=== PATIENT | female | born 1955 | race Caucasian/White ===

== ENCOUNTER → 2021-08-28 | Outpatient (CLI) | payer MEDICARE ==
[~2021-08-28] MED LIST: AMIT25TA PO; ASPI-630 PO; ESOM40CA PO; IOHEXOL 180 MG/ML 10 ML VIAL. ONE; NAPR220C62 PO; TIZA4CAP PO; methylPREDNISolone ACETATE 80 MG/ML VIAL. ONE
--- NOTE | 2021-08-28 12:28 | PDOC4 ---
Procedure Note: ICD 10 Code: ICD 10 Code: M54.16 M51.36 M4 8.06 Procedure Note: Patient was consented for lumbar epidural steroid injection with fluoroscopic guidance. Risks were discussed including but not limited to: Bleeding, infection, possibility of epidural hematoma and subsequent neurological compromise, dural puncture, headaches, spinal cord and/or nerve damage, side effects of steroid medication, and poor results regarding pain control. Patient understands and wished to proceed. Procedure is lumbar epidural steroid injection under local anesthetic using suri rile prep and drape at the L4-5 level using C-arm fluoroscopic guidance in both AP and lateral views medications injected is 120 mg Depo-Medrol +10mL preservative-free normal saline and 2 mL contrast- condition at discharge is stable patient tolerated procedure well had no complications. ANN ALVAREZ MD Aug 28, 2021 12:28
--- NOTE | 2021-08-28 12:28 | PDOC1 ---
INITIAL PAIN CONSULT DATE OF SERVICE: DOS: DATE: 08/28/21 TIME: 12:21 CHIEF COMPLAINT: Chief Complaint: Low back and right lower extremity pain HISTORY OF PRESENT ILLNESS: 66-year-old female presents with history of pain low back right lower extremity for many years and worse over the past year or so without any specific injury or accident that she is aware patient is retired nurse and reports she has had mu ltiple injuries to her back over the years with her profession and the pain is now radiating to the right lower extremity and has been that way for at least a year with radiating pain in the right leg patient was taking care of her parents and had to put off taking care of herself for the last year patient reports it interferes with her life every day gets worse in she would like to get some treatment for this now she has recently seen her neurosurgeon who is questing conservative measures instead of surgery. Patient reports pain in the low back right lower extremity posterior gluteus lateral thigh anterior thigh medial thigh and the lateral lower leg as well as some in the posterior lower leg mostly in the anterior aspect patient reports is constant sharp stabbing and shooting the leg aching in the back intermittent intensity worse with walking standing changing positions better with sitting or laying down but awakens her from sleep at least once or twice a night patient reports is not effective bowel bladder control does affect her ability to walk and she is noticeably limping with her right leg but not use any assistive devices. Patient reports she is taking tizanidine which has not been helping the pain very much and Elavil is not helping her sleep although she is still taking it patient has had therapy in the past but is doing some stretching 3 exercises as well as heat applications on her own but without any significant reduction in pain. Patient reports her disability rating 0-10 10 being the worst is a 8 with responsibilities recreation and social activity 7 with occupation for self-care and 7 with life support activities specially sleeping. Patient of MRI scan lumbar spine showing degenerative disc changes throughout the lumbar spine with narrowing of the central canal at L3-4 circumferential annular disc bulge at L4-5 and L5-S1 with moderate left neuroforaminal encroachment L4-5 and mild right neuroforaminal encroachment L4-5 and mild facet arthropathy at both levels with right exiting neural foramen patent at L5-S1 with a moderate degree of inferior neuroforaminal encroachment on the left. Patient reports no loss of motor function with significant fatigability with the right lower extremity with standing especially with changing positions or walking for more than 15 to 20 minutes. Patient reports she is still able to walk up to a mile but at that point she must sit down and rest secondary to the pain in the back, and radiating pain in the right leg. PAST MEDICAL HISTORY: PMH: Arthritis, gastroesophageal reflux PREVIOUS SURGERIES: Past Surgical Hx: Hysterectomy, tubal ligation, cystocele repair, cervical laminectomy CURRENT MEDICATIONS: Current Meds: Active Scripts Medications Dose Route/Sig Max Daily Dose Days Date Category Naproxen Sodium 220 Mg Capsule 2 Cap PO BID 7 08/28/21 Reported Aspirin 81 Mg Tab.chew 1 Tab PO DAILY 08/28/21 Reported Nexium Capsule (Esomeprazole Magnesium) 40 Mg Capsule.dr 1 Cap PO DAILY 08/28/21 Reported Tizanidine Hcl 4 Mg Capsule 4 Mg PO QID PRN 08/28/21 Reported Amitriptyline Hcl 25 Mg Tablet 1 Tab PO QHS 08/28/21 Reported ALLERGIES; Allergies: Coded Allergies: No Known Drug Allergies (Unverified , 08/28/21) FAMILY HISTORY: Family Hx: Alzheimer's, bladder cancer, hypercholesterolemia, mantle cell lymphoma, hypothyroidism SOCIAL HISTORY: Social Hx: Patient drinks alcohol occasionally does not smoke says any illegal illicit or recreational drugs is lives with her spouse is recently retired and lives in [facility] REVIEW OF SYSTEMS: ROS: Positive for those items mentioned in history of present illness, all systems are reviewed, otherwise negative ,and are complete full and well-documented on patient's chart. PHYSICAL EXAM: VS: Blood pressure is 143/88, pulse 87 respirations 18 temperature is 90.3 F height is 5 feet 8 inches weight is 179 pounds. PE: PHYSICAL EXAMINATION: GENERAL: The patient is awake, alert, oriented, appropriate, very pleasant in demeanor HEENT: Shows normocephalic, atraumatic. Extraocular movements are intact and symmetrical. Oral cavity: Mucous membranes moist and pink. Dentition is intact. NECK: Shows anterior throat supple without palpable lymphadenopathy noted. Swallow reflex symmetrical. CHEST: Shows normal on inspection. Breath sounds are clear bilaterally, distant but no rales rhonchi or wheezes auscultated. HEART: Shows S1, S2 clear. No murmurs auscultated. ABDOMEN: Soft, nontender, nondistended. No palpable organomegaly is noted. BACK: Shows spine grossly in the midline. Normal-appearing cervical lordotic curvature. There is slightly increased thoracic kyphosis, some mild flattening of the lumbar lordotic curvature. Lumbar paraspinous muscles show symmetrical on inspection, on palpation shows some moderate tenderness diffusely throughout the upper, middle and lower distribution of the paraspinous muscles bilaterally and also into the lower thoracic paraspinous musculature, firm and tender, but without specific trigger points, without radiation of pain. The patient has good rotational motion of the lumbar spine, both laterally as well as extension and flexion without significant difficulty. EXTREMITIES: Lower extremities show deep tendon reflexes 2+ in the patellar and tendo calcaneus tendons. Motor exam is 4 on a scale of 5 with right dorsiflexion, extension, quadriceps and hamstring flexion and 5/5 on the left. Peripheral pulses are 1+ posterior tibial. No peripheral edema is noted bilaterally. Lower extremities are warm and dry to touch, equal in color and appearance. Straight leg raise noted to be positive on the right approximate 35 degrees decreased with knee flexion, left side is negative. SKIN: Shows warm and dry, good turgor. No edema. No sores, rashes or bruising throughout. IMPRESSION: Impression: 66-year-old female with several year history increasing pain low back right lower extremity worse over the past year and radicular fashion. MRI scan lumbar spine as noted Arthritis Gastroesophageal reflux Plan: Options were discussed the patient including conservative managements physical therapies interventional techniques. Patient would like to pursue interventional techniques. We discussed a lumbar epidural steroid injection using description as well as anatomical models to describe the procedure. Risks were discussed including but not limited to: Bleeding, infection, possibility of epidural hematoma and subsequent neurological compromise, dural puncture, headaches, spinal cord and/or nerve damage, side effects of steroid medication, and poor results regarding pain control. Patient understands and wished to proceed. Patient will return to clinic in approximately 2 weeks for follow-up, was counseled as to return appointment, activity level, and side effects to be aware of. Procedure is lumbar epidural steroid injection under local anesthetic using sterile prep and drape at the L4-5 level using C-arm fluoroscopic guidance in both AP and lateral views medications injected is 120 mg Depo-Medrol +10mL preservative-free normal saline and 2 mL contrast- condition at discharge is stable patient tolerated procedure well had no complications. ANN ALVAREZ MD Aug 28, 2021 12:28
== END | disposition home or self-care (01) ==
LOC: PNCL 10:05
PROVIDERS: ATTEND Anesthesiology
DX: M51.16 Intervertebral disc disorders with radiculopathy, lumbar region (principal); M48.061 Spinal stenosis, lumbar region without neurogenic claudication; M79.604 Pain in right leg; Z79.82 Long term (current) use of aspirin; Z79.899 Other long term (current) drug therapy
CPT/HCPCS: 62323; 99205; J1040; Q9965; G0463

== ENCOUNTER → 2021-09-10 | Outpatient (CLI) | payer MEDICARE ==
[~2021-09-10] MED LIST changes: -IOHEXOL 180 MG/ML 10 ML VIAL. ONE; -methylPREDNISolone ACETATE 80 MG/ML VIAL. ONE
--- NOTE | 2021-09-10 08:13 | PDOC ---
Progress Note - Pain Clinic Date of Service: DOS: DATE: 09/10/21 TIME: 08:09 Diagnosis: Dx: Lumbar radiculopathy with lumbar degenerative disease and lumbar spinal stenosis History or Present Illness: HPI: 66-year-old female returns for follow-up status post lumbar epidural steroid injection August 28, 2021. Patient reports 99% improvement after the injection with the pain still in the right hip and lower extremity but very minimal patient reports she is not limping anymore not favoring the right lower extremity she is walking greater distances doing household activities work activities travel with greater ease and comfort sleeping better using less oral medications for analgesics patient reports her pain is a 1 on scale 10 is worst 1 on average 0 its least is a 1 today. Patient reports no new bowel or bladder incontinence no motor or sensory deficits. Patient reports he is very pleased with progress foot pain is completely gone 100% in the right foot and the leg is close to being completely resolved. Patient reports he does have some pain in the back which she feels is weak and unconditioned and we discussed this further and will refer patient for physical therapy with some stretching strength exercise as well as postural retraining and conditioning of the lower extrem ities as well as the lumbar spine. Patient has a facility close to home and we will make arrangements for her to be evaluated and treated at that physical therapy facility. Physical Exam: VS: Blood pressure is 154/91 pulse 76 respirations 20 temperature 98.0 F height 5 feet 8 inches weight is 182 pounds. PE: PHYSICAL EXAMINATION: GENERAL: The patient is awake, alert, oriented, appropriate, very pleasant in demeanor HEENT: Shows normocephalic, atraumatic. Extraocular movements are intact and symmetrical. Patient wearing eyeglasses. Oral cavity: Mucous membranes moist and pink. Dentition is intact. NECK: Shows anterior throat supple without palpable lymphadenopathy noted. Swallow reflex symmetrical. CHEST: Shows normal on inspection. Breath sounds are clear bilaterally, distant but no rales rhonchi or wheezes auscultated. HEART: Shows S1, S2 clear. No murmurs auscultated. ABDOMEN: Soft, nontender, nondistended. No palpable organomegaly is noted. BACK: Shows spine grossly in the midline. Normal-appearing cervical lordotic curvature. There is mildly increased thoracic kyphosis, some flattening of the lumbar lordotic curvature. Lumbar paraspinous muscles show symmetrical on inspection, on palpation shows some moderate tenderness diffusely throughout the upper, middle and lower distribution of the paraspinous muscles without specific trigger points, without radiation of pain. The patient has good rotational motion of the lumbar spine, both laterally as well as extension and flexion without significant difficulty. No tenderness over the spinous processes, sacrum or sacroiliac regions. EXTREMITIES: Lower extremities show deep tendon reflexes 2+ in the patellar and tendo calcaneus tendons. Motor exam is 4 on a scale of 5 with right dorsiflexion, extension, quadriceps and hamstring flexion and 5/5 on the left. Peripheral pulses are 1+ posterior tibial. No peripheral edema is noted bilaterally. Lower extremities are warm and dry to touch, equal in color and appearance. SKIN: Shows warm and dry, good turgor. No edema. No sores, rashes or bruising throughout. Procedure: Procedure: Options were discussed with the patient. Patient's old chart was reviewed as her current medication regimen updated current review of systems updated today as well. We will hold on further injections at this time as patient is doing quite a bit better, we will order new physical therapy with stretching strength exercise as well as conditioning and postural training for the low back and lower extremities. Patient will continue with daily walking exercise as tolerat ed with physical therapy to start as ordered. At this time, patient will be following up on as-needed basis. Medication Injected: Med Injected: None Condition at Discharge: Condition at Discharge: Condition at discharge is stable. ANN ALVAREZ MD Sep 10, 2021 08:13
== END | disposition home or self-care (01) ==
LOC: PNCL 07:40
PROVIDERS: ATTEND Anesthesiology
DX: M51.16 Intervertebral disc disorders with radiculopathy, lumbar region (principal); M48.061 Spinal stenosis, lumbar region without neurogenic claudication; Z79.82 Long term (current) use of aspirin; Z79.899 Other long term (current) drug therapy
CPT/HCPCS: 99212; G0463

== ENCOUNTER → 2021-10-21 | Outpatient (CLI) | payer MEDICARE ==
[~2021-10-21] MED LIST changes: +DEXAMETHASONE PRES.FREE 10 MG/ML VIAL. ONE; +IOHEXOL 180 MG/ML 10 ML VIAL. ONE
--- NOTE | 2021-10-21 09:32 | PDOC ---
Progress Note - Pain Clinic Date of Service: DOS: DATE: 10/21/21 TIME: 09:30 Diagnosis: Dx: Lumbar radiculopathy lumbar degenerative disc disease and lumbar spinal stenosis History or Present Illness: HPI: 66-year-old female returns for follow-up status post lumbar epidural steroid injection x1. Patient reports about 99% improvement for about 2 months the patient reports the pain is beginning to return now for the past week or so patient reports is in the low back and right lower extremity posterior gluteus posterior lateral thigh lateral anterior thigh anteromedial thigh medial lower leg mostly in the upper aspect of the leg however not as much radiation of the lower part as it was previously patient reports is 8 on scale 10 is worst over the past week 8 on average 6 its least is an [address] is sharp and constant with walking standing change positions better with sitting or lying down but is waking her from sleep once again about every 6 hours patient reports initially she would do much better with distance walking doing household activities travel with greater ease and comfort sleeping better now is beginning to return as noted. Patient reports no bowel or bladder incontinence. Physical Exam: VS: Blood pressure is 130/74 pulse 80 respirations are 18 temperature is 98.5 F height is 5 foot 8 inches weight is 184 pounds. PE: PHYSICAL EXAMINATION: GENERAL: The patient is awake, alert, oriented, appropriate, very pleasant in demeanor HEENT: Shows normocephalic, atraumatic. Extraocular movements are intact and symmetrical. Oral cavity: Mucous membranes moist and pink. Dentition is intact. NECK: Shows anterior throat supple without palpable lymphadenopathy noted. Swallow reflex symmetrical. CHEST: Shows normal on inspection. Breath sounds are clear bilaterally, no rales or rhonchi auscultated. HEART: Shows S1, S2 clear. No murmurs auscultated. ABDOMEN: Soft, nontender, nondistended. No palpable organomegaly is noted. BACK: Shows spine grossly in the midline. Normal-appearing cervical lordotic curvature. There is slightly increased thoracic kyphosis, some minor flattening of the lumbar lordotic curvature. Lumbar paraspinous muscles show symmetrical on inspection, on palpation shows some moderate tenderness diffusely throughout the upper, middle and lower distribution of the paraspinous musculature without specific trigger points, without radiation of pain. The patient has good rotational motion of the lumbar spine, both laterally as well as extension and flexion without significant difficulty. EXTREMITIES: Lower extremities show deep tendon reflexes 2+ in the patellar and tendo calcaneus tendons. Motor exam is 4 on a scale of 5 with right dorsiflexion, extension, quadriceps and hamstring flexion and 5/5 on the left. Peripheral pulses are 1+ posterior tibial. No peripheral edema is noted bilaterally. Lower extremities are warm and dry. SKIN: Shows warm and dry, good turgor. No edema. No sores, rashes or bruising throughout. Procedure: Procedure: Options discussed with the patient. Patient's old chart was reviewed as her current medication regimen updated current review of systems updated today as well. We will proceed with a lumbar epidural steroid injection today with fluoroscopic guidance. Risks were discussed including but not limited to: Bleeding, infection, possibility of epidural hematoma and subsequent neurological compromise, dural puncture, headaches, spinal cord and/or nerve damage, side effects of steroid medication, and poor results regarding pain control. Patient understands and wished to proceed. Patient will return to the clinic in approximately 2 weeks for follow-up, counseled as to return appointment, activity level, and side effects to be aware of. Medication Injected: Med Injected: Procedure is lumbar epidural steroid injection under local anesthetic using sterile prep and drape at the L4-5 level using C-arm fluoroscopic guidance in both AP and lateral views medications injected is 20 mg dexamethasone +10mL preservative-free normal saline and 2 mL contrast- condition at discharge is stable patient tolerated procedure well had no complications. Condition at Discharge: Condition at Discharge: Condition at discharge stable, patient tolerated procedure well and had no complications. ANN ALVAREZ MD Oct 21, 2021 09:32
--- NOTE | 2021-10-21 09:33 | PDOC4 ---
Procedure Note: ICD 10 Code: ICD 10 Code: M54.16 M51.36 M 40.06 Procedure Note: Patient is consented for lumbar epidural steroid injection with fluoroscopic guidance. Risks were discussed including but not limited to: Bleeding, infection, possibility of epidural hematoma and subsequent neurological compromise, dural puncture, headaches, spinal cord and/or nerve damage, side effects of steroid medication, and poor results regarding pain control. Patient understands and wished to proceed. Procedure is lumbar epidural steroid injection under local anesthetic using ster ile prep and drape at the L4-5 level using C-arm fluoroscopic guidance in both AP and lateral views medications injected is 20 mg dexamethasone +10mL preservative-free normal saline and 2 mL contrast- condition at discharge is stable patient tolerated procedure well had no complications. ANN ALVAREZ MD Oct 21, 2021 09:33
== END | disposition home or self-care (01) ==
LOC: PNCL 08:35
PROVIDERS: ATTEND Anesthesiology
DX: M51.16 Intervertebral disc disorders with radiculopathy, lumbar region (principal); M48.061 Spinal stenosis, lumbar region without neurogenic claudication; Z79.82 Long term (current) use of aspirin; Z79.899 Other long term (current) drug therapy
CPT/HCPCS: 62323; J1100; Q9965